=== PATIENT | male | born 1990 | race Caucasian/White ===

== ENCOUNTER 2019-08-06 10:50 | Emergency (ER) | payer OTHER ==
[~2019-08-06] VITALS: Ht 180.3 cm; Wt 123.4 kg
[2019-08-06] MEDS ORDERED: CLAR2.5T PO (12:31)
[2019-08-06] MEDS ORDERED: IBUP-1426 PO (12:31)
[2019-08-06] MEDS ORDERED: NS 1,000 ML IV ONE (13:00)
[2019-08-06] MEDS ORDERED: ACETAMINOPHEN 325 MG TAB PO ONE (13:00)
[2019-08-06 13:07] LABS: BASO % 0.4 % (0.0-1.0); EOS # 0.1 10^3/uL (0.0-0.5); EOS % 1.2 % (0.0-3.0); HEMOGLOBIN 14.7 g/dl (13.5-17.5); LYMPH % 12.2 % (24.0-44.0); MEAN CORPUSCULAR HGB CONC 33.4 g/dl (32.0-36.5); MEAN CORPUSCULAR VOLUME 86.8 fl (80.0-96.0); MONO # 0.2 10^3/uL (0.0-0.8); MONO % 2.4 % (0.0-5.0); NEUTROPHILS # 6.7 10^3/uL (1.5-8.5); NEUTROPHILS % 83.4 % (36.0-66.0); PLATELET COUNT, AUTOMATED 396 10^3/uL (150-450); RED BLOOD COUNT 5.07 10^6/uL (4.30-6.10); WHITE BLOOD COUNT 8.1 10^3/uL (4.0-10.0)
--- NOTE | 2019-08-06 13:10 | REP ---
CHEST, TWO VIEWS: There is no evidence of acute infiltrate. No pleural effusion is seen. The heart is normal in size. The mediastinal silhouette is unremarkable. The visualized osseous structures are intact. IMPRESSION: No acute pulmonary disease. Electronically Signed by Dominic Mak MD 08/07/2019 09:28 A
[2019-08-06 13:26] LABS: MONO SCRN NEGATIVE (NEGATIVE)
[2019-08-06 13:26] LABS: INFLUENZA A AMPLIFICATION NEGATIVE (NEGATIVE); INFLUENZA B AMPLIFICATION NEGATIVE (NEGATIVE)
[2019-08-06 13:28] LABS: ALBUMIN 3.5 GM/DL (3.2-5.2); ALT/SGPT 45 U/L (12-78); BLOOD UREA NITROGEN 11 MG/DL (7-18); CALCIUM LEVEL 8.9 MG/DL (8.5-10.1); CARBON DIOXIDE LEVEL 24 MEQ/L (21-32); CHLORIDE LEVEL 103 MEQ/L (98-107); CREATININE FOR GFR 0.87 MG/DL (0.70-1.30); GLOMERULAR FILTRATION RATE > 60.0 (>60); GLUCOSE, FASTING 94 MG/DL (70-100); POTASSIUM SERUM 4.1 MEQ/L (3.5-5.1); SODIUM LEVEL 138 MEQ/L (136-145); TOTAL PROTEIN 7.9 GM/DL (6.4-8.2)
[2019-08-06 14:22] LABS: APPEARANCE, URINE HAZY (CLEAR); BACTERIA, URINE AUTO NEGATIVE (NEGATIVE); BILIRUBIN, URINE AUTO NEGATIVE (NEGATIVE); BLOOD, URINE BLOOD 2+ (NEGATIVE); COLOR, URINE YELLOW (YELLOW); GLUCOSE, URINE (UA) AUTO NEGATIVE (NEGATIVE); KETONE, URINE AUTO 1+ mg/dL (NEGATIVE); LEUKOCYTE ESTERASE, URINE AUTO NEGATIVE (NEGATIVE); MUCUS, URINE SMALL (NEGATIVE); NITRITE, URINE AUTO NEGATIVE (NEGATIVE); PROTEIN, URINE AUTO NEGATIVE (NEGATIVE); RBC, URINE AUTO 20 /HPF (0-3); SPECIFIC GRAVITY URINE AUTO 1.016 (1.002-1.035); SQUAMOUS EPITHELIAL CELL UR AU 1 /HPF (0-6); WBC, URINE AUTO 2 /HPF (0-3)
[2019-08-06] MEDS ORDERED: KETOROLAC 30 MG/ML VIAL (J1885) IV ONE (15:00)
[2019-08-06 16:15] VITALS: BP 127/60
[2019-08-06] MEDS ORDERED: IBUP1TAB7 PO (16:25)
--- NOTE | 2019-08-06 17:24 | REP ---
CT abdomen pelvis without IV or oral contrast: History: Fever, hematuria, back pain. No comparison study. 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 The lung bases show no evidence of infiltrate. There is minimal discoid atelectasis in the left base. The liver and the spleen are normal in size and homogeneous in texture. No adrenal lesion is seen on either side. No abnormalities noted in the pancreas. The gallbladder is unremarkable on noncontrast CT. The kidneys appear morphologically intact. There is no urinary tract calculus is seen. No hydronephrosis is noted. Urinary bladder is unremarkable. Prostate and seminal vesicles are unremarkable. Appendix is seen in the right lower abdomen. Small and large intestinal bowel loops are unremarkable. No bony destructive lesion. Impression: Negative CT study abdomen and pelvis no urinary tract calculus or hydronephrosis is seen. Normal appendix. Electronically Signed by Maurizio Quezada MD 08/07/2019 07:50 A
--- NOTE | 2019-08-07 07:21 | ECGEPIP ---
[facility] - ED Test Date: 2019-08-06 Pat Name: ABDIAZIZ ABEBE Department: Room: - Gender: Male Loading Dock Hand: CT : 1990 Requested By: Juan Napier Order Number: [id number] Reading MD: Kerry Asencio Measurements Intervals [place] Rate: 80 P: 38 NM: 170 QRS: 41 QRSD: 106 T: 48 QT: 336 QTc: 387 Interpretive Statements SINUS RHYTHM No prior Electronically Signed on 08-07-2019 7:21:20 EDT by Kerry Asencio
== END 2019-08-06 16:44 | disposition home or self-care (01) ==
LOC: M ED 10:50
DX: B34.9 Viral infection, unspecified (principal); I10 Essential (primary) hypertension; Z79.899 Other long term (current) drug therapy
CPT/HCPCS: 36415; 71046; 74176; 80053; 81001; 85025; 85379; 86308; 87086; 87502; 93005; 96361; 96374; 99284; J1885

== ENCOUNTER 2019-09-21 13:15 | Emergency (ER) | payer OTHER ==
[~2019-09-21] VITALS: Ht 177.8 cm; Wt 122.7 kg
[~2019-09-21 13:15] MED LIST: CLAR2.5T PO; IBUP-1426 PO; IBUP1TAB7 PO
[2019-09-21 14:02] LABS: BASO # 0.1 10^3/uL (0.0-0.2); EOS # 0.2 10^3/uL (0.0-0.5); EOS % 3.2 % (0.0-3.0); HEMATOCRIT 45.9 % (42.0-52.0); HEMOGLOBIN 15.4 g/dl (13.5-17.5); LYMPH # 1.6 10^3/uL (1.5-5.0); MEAN CORPUSCULAR HEMOGLOBIN 29.3 pg (27.0-33.0); MEAN CORPUSCULAR HGB CONC 33.6 g/dl (32.0-36.5); MEAN CORPUSCULAR VOLUME 87.3 fl (80.0-96.0); MONO # 0.4 10^3/uL (0.0-0.8); MONO % 7.6 % (0.0-5.0); NEUTROPHILS # 2.7 10^3/uL (1.5-8.5); PLATELET COUNT, AUTOMATED 344 10^3/uL (150-450); RED BLOOD COUNT 5.26 10^6/uL (4.30-6.10)
[2019-09-21 14:21] LABS: BLOOD UREA NITROGEN 10 MG/DL (7-18); CALCIUM LEVEL 9.2 MG/DL (8.5-10.1); CARBON DIOXIDE LEVEL 31 MEQ/L (21-32); CHLORIDE LEVEL 107 MEQ/L (98-107); CREATININE FOR GFR 0.96 MG/DL (0.70-1.30); GLOMERULAR FILTRATION RATE > 60.0 (>60); GLUCOSE, FASTING 94 MG/DL (70-100); POTASSIUM SERUM 4.5 MEQ/L (3.5-5.1); SODIUM LEVEL 142 MEQ/L (136-145)
--- NOTE | 2019-09-21 14:32 | REP ---
LEFT HAND, FOUR VIEWS: There is no evidence of an acute fracture, dislocation or intrinsic bone disease. IMPRESSION: No fracture or dislocation. Electronically Signed by Dominic Mak MD 09/21/2019 02:42 P
--- NOTE | 2019-09-21 15:10 | REP ---
SCROTAL ULTRASOUND: Real-time sonographic evaluation of scrotum and contents performed. Testicles are normal in size and echotexture, right testicle measuring 5.0 x 2.8 x 3.2 cm and left testicle 4.5 x 2.2 x 3.4 cm. I see no testicular mass. There is no torsion with blood flow seen in each testicle with duplex Doppler evaluation. Right testicle and epididymis both appear somewhat hyperemic compared to the left. There may also be some degree of hyperemia on the left. Findings suggest at least right-sided epididymitis and orchitis, possibly to a lesser extent on the left. There is a cyst in the head of the right epididymis 6 mm in diameter and a 7 mm cyst in the head of the left epididymis. There appears to be a very small left hydrocele. IMPRESSION: Hyperemia right testicle and epididymis suggesting epididymitis and orchitis. There may also be a lesser degree of left-sided epididymitis and orchitis. Electronically Signed by Dominic Mak MD 09/21/2019 04:32 P
[2019-09-21 15:46] LABS: CHLAMYDIA DNA AMPLIFICATION NEGATIVE (NEGATIVE); GC DNA AMPLIFICATION NEGATIVE (NEGATIVE)
[2019-09-21] MEDS ORDERED: DOXYCYCLINE HYCLATE 100 MG TAB PO ONE (16:15)
[2019-09-21] MEDS ORDERED: LIDOCAINE 1% SDV 5 ML VIAL DILUENT ONE (16:15)
[2019-09-21] MEDS ORDERED: cefTRIAXone SOD 250 MG VIAL (J0696) IM ONE (16:15)
[2019-09-21 16:46] VITALS: BP 142/78
[2019-09-21] MEDS ORDERED: DOXY100C37 PO (16:55)
== END 2019-09-21 17:03 | disposition home or self-care (01) ==
LOC: M ED 13:15
DX: N45.1 Epididymitis (principal); N45.2 Orchitis; I10 Essential (primary) hypertension; Z87.891 Personal history of nicotine dependence
CPT/HCPCS: 73130; 76870; 80048; 81001; 85025; 87491; 87591; 93976; 96372; 99283; J0696

== ENCOUNTER → 2019-10-16 | Outpatient (REF) | payer OTHER ==
[~2019-10-16] MED LIST changes: +DOXY100C37 PO
[2019-10-16 13:39] LABS: APPEARANCE, URINE CLEAR (CLEAR); BACTERIA, URINE AUTO NEGATIVE (NEGATIVE); BILIRUBIN, URINE AUTO NEGATIVE (NEGATIVE); BLOOD, URINE BLOOD NEGATIVE (NEGATIVE); COLOR, URINE YELLOW (YELLOW); GLUCOSE, URINE (UA) AUTO NEGATIVE (NEGATIVE); KETONE, URINE AUTO NEGATIVE (NEGATIVE); LEUKOCYTE ESTERASE, URINE AUTO NEGATIVE (NEGATIVE); MUCUS, URINE SMALL (NEGATIVE); NITRITE, URINE AUTO NEGATIVE (NEGATIVE); PROTEIN, URINE AUTO NEGATIVE (NEGATIVE); RBC, URINE AUTO 3 /HPF (0-3); SPECIFIC GRAVITY URINE AUTO 1.023 (1.002-1.035); SQUAMOUS EPITHELIAL CELL UR AU 0 /HPF (0-6); UROBILINOGEN, URINE AUTO 0.2 mg/dL (0.0-2.0); WBC, URINE AUTO 1 /HPF (0-3)
== END ==
LOC: M SMT 12:55
PROVIDERS: ATTEND Nurse Practitioner Women's Health
DX: R31.0 Gross hematuria (principal); N45.3 Epididymo-orchitis
CPT/HCPCS: 81001; 87086; G0463

== ENCOUNTER → 2019-11-27 | Outpatient (CLI) | payer OTHER ==
[~2019-11-27] MED LIST changes: +ISOVUE-370 76% 100ML VIAL (Q9967) As Ordered ONE
--- NOTE | 2019-11-27 15:31 | REP ---
Clinical: Gross hematuria. Technique: Axial precontrast, contrast enhanced, and delayed images of the abdomen and pelvis using 100 ml Isovue 370 intravenous contrast material with coronal and sagittal re-formations. Comparison: 08/06/2019. Findings: The bilateral kidneys, ureters, and bladder are normal in all phases of evaluation. No evidence for nephrolithiasis, perinephric stranding, or hydroureteronephrosis. The kidneys demonstrate symmetric parenchymal enhancement and symmetric excretion to the collecting system. Liver, spleen, pancreas, gallbladder, and bilateral adrenal glands are normal. The enteric system is without obstruction or acute inflammatory process. Normal terminal ileum and appendix are identified in the right lower quadrant. Scattered sigmoid diverticula noted without acute diverticulitis. Pelvis demonstrates normal bladder and age appropriate prostate/seminal vesicles. No ascites. No free air. No adenopathy. Abdominal aorta without aneurysm or dissection. Musculoskeletal structures are intact. Lung bases are clear. Impression: 1. Normal urinary tract system. 2. Scattered colonic and sigmoid diverticula without acute diverticulitis. 3. No further acute abdominopelvic pathology appreciated. Electronically Signed by Mathieu Harrison MD 11/27/2019 03:22 P
== END ==
LOC: M RAD 13:49
PROVIDERS: ATTEND Urology
DX: R31.0 Gross hematuria (principal)
CPT/HCPCS: 74178; Q9967

== ENCOUNTER → 2020-05-14 | Outpatient (REF) | payer OTHER ==
[~2020-05-14] MED LIST changes: -ISOVUE-370 76% 100ML VIAL (Q9967) As Ordered ONE
[2020-05-14 18:45] LABS: AMORPHOUS SEDIMENT MODERATE (NEGATIVE); APPEARANCE, URINE TURBID (CLEAR); BACTERIA, URINE AUTO NEGATIVE (NEGATIVE); BILIRUBIN, URINE AUTO NEGATIVE (NEGATIVE); BLOOD, URINE BLOOD 2+ (NEGATIVE); COLOR, URINE AMBER (YELLOW); GLUCOSE, URINE (UA) AUTO NEGATIVE (NEGATIVE); KETONE, URINE AUTO NEGATIVE (NEGATIVE); LEUKOCYTE ESTERASE, URINE AUTO NEGATIVE (NEGATIVE); MUCUS, URINE SMALL (NEGATIVE); NITRITE, URINE AUTO NEGATIVE (NEGATIVE); PROTEIN, URINE AUTO NEGATIVE (NEGATIVE); RBC, URINE AUTO 0 /HPF (0-3); SPECIFIC GRAVITY URINE AUTO 1.021 (1.002-1.035); SQUAMOUS EPITHELIAL CELL UR AU 1 /HPF (0-6); UROBILINOGEN, URINE AUTO 0.2 mg/dL (0.0-2.0); WBC, URINE AUTO 2 /HPF (0-3)
== END ==
LOC: M SMT 17:00
PROVIDERS: ATTEND Nurse Practitioner Women's Health
DX: R31.0 Gross hematuria (principal)

== ENCOUNTER → 2020-12-31 | Outpatient (REF) | payer OTHER ==
[2020-12-31 15:34] LABS: SEMEN APPEARANCE OPAQUE (OPAQUE); SEMEN VISCOSITY LIQUID (LIQUID); SEMEN VOLUME 1.4 ml (2.0-5.0); WBC CONCENTRATION >1 M/ml (<=1 M/ml)
[2020-12-31 15:35] LABS: SPERM CONCENTRATION 62.8 M/ml (>=15.0)
== END ==
LOC: M LAB REF 15:24
PROVIDERS: ATTEND Obstetrics & Gynecology
DX: Z98.52 Vasectomy status (principal)